=== PATIENT | female | born 1995 | race Caucasian/White ===

== ENCOUNTER → 2016-04-14 | Outpatient (RCR) | payer OTHER, MEDICAID | END | disposition home or self-care (01) | LOC: M OUTALCOH 03-17 10:00 | PROVIDERS: ATTEND Psychiatry & Neurology Psychiatry | DX: F10.10 Alcohol abuse, uncomplicated (principal); F11.20 Opioid dependence, uncomplicated; F12.10 Cannabis abuse, uncomplicated; Z72.0 Tobacco use ==

== ENCOUNTER 2016-05-06 16:00 | Outpatient (RCR) | payer OTHER, MEDICAID | END 2016-05-12 | LOC: M OUTALCOH 16:00 | PROVIDERS: ATTEND Psychiatry & Neurology Psychiatry | DX: F10.10 Alcohol abuse, uncomplicated (principal); F11.20 Opioid dependence, uncomplicated; F12.10 Cannabis abuse, uncomplicated; Z72.0 Tobacco use ==

== ENCOUNTER 2016-06-11 14:00 | Outpatient (RCR) | payer OTHER, MEDICAID | END 2016-06-12 | LOC: M OUTALCOH 14:00 | PROVIDERS: ATTEND Psychiatry & Neurology Psychiatry | DX: F11.20 Opioid dependence, uncomplicated (principal); F12.10 Cannabis abuse, uncomplicated; Z72.0 Tobacco use; F10.10 Alcohol abuse, uncomplicated ==

== ENCOUNTER 2016-07-08 10:00 | Outpatient (RCR) | payer OTHER, MEDICAID | END 2016-07-12 | LOC: M OUTALCOH 10:00 | PROVIDERS: ATTEND Psychiatry & Neurology Psychiatry | DX: F11.20 Opioid dependence, uncomplicated (principal); F12.10 Cannabis abuse, uncomplicated; Z72.0 Tobacco use; F10.10 Alcohol abuse, uncomplicated ==

== ENCOUNTER 2016-08-11 10:30 | Outpatient (RCR) | payer OTHER, MEDICAID | END 2016-08-12 | LOC: M OUTALCOH 10:30 | PROVIDERS: ATTEND Psychiatry & Neurology Psychiatry | DX: F11.20 Opioid dependence, uncomplicated (principal); F12.10 Cannabis abuse, uncomplicated; Z72.0 Tobacco use; F10.10 Alcohol abuse, uncomplicated ==

== ENCOUNTER 2016-09-07 15:00 | Outpatient (RCR) | payer OTHER, MEDICAID | END 2016-09-11 | LOC: M OUTALCOH 15:00 | PROVIDERS: ATTEND Psychiatry & Neurology Psychiatry | DX: F11.20 Opioid dependence, uncomplicated (principal); F12.10 Cannabis abuse, uncomplicated; F10.10 Alcohol abuse, uncomplicated; Z72.0 Tobacco use ==

== ENCOUNTER 2016-10-07 13:00 | Outpatient (RCR) | payer OTHER, MEDICAID | END 2016-10-12 | LOC: M OUTALCOH 13:00 | PROVIDERS: ATTEND Psychiatry & Neurology Psychiatry | DX: F11.20 Opioid dependence, uncomplicated (principal); F12.10 Cannabis abuse, uncomplicated; Z72.0 Tobacco use; F10.10 Alcohol abuse, uncomplicated ==

== ENCOUNTER 2016-11-06 13:00 | Outpatient (RCR) | payer OTHER, MEDICAID | END 2016-11-12 | LOC: M OUTALCOH 13:00 | PROVIDERS: ATTEND Psychiatry & Neurology Psychiatry | DX: F11.20 Opioid dependence, uncomplicated (principal); F12.10 Cannabis abuse, uncomplicated; Z72.0 Tobacco use; F10.10 Alcohol abuse, uncomplicated ==

== ENCOUNTER 2016-12-07 16:00 | Outpatient (RCR) | payer OTHER, MEDICAID | END 2016-12-12 | LOC: M OUTALCOH 16:00 | PROVIDERS: ATTEND Psychiatry & Neurology Psychiatry | DX: F11.20 Opioid dependence, uncomplicated (principal); F12.10 Cannabis abuse, uncomplicated; Z72.0 Tobacco use; F10.10 Alcohol abuse, uncomplicated ==

== ENCOUNTER 2017-01-15 11:33 | Outpatient (RCR) | payer OTHER, MEDICAID | END 2017-02-11 | LOC: M OUTALCOH 11:33 | PROVIDERS: ATTEND Psychiatry & Neurology Psychiatry | DX: F11.20 Opioid dependence, uncomplicated (principal); F12.10 Cannabis abuse, uncomplicated; Z72.0 Tobacco use; F10.10 Alcohol abuse, uncomplicated ==

== ENCOUNTER 2017-04-17 16:02 | Emergency (ER) | payer OTHER, MEDICAID | END 2017-04-17 17:58 | disposition home or self-care (01) | LOC: M ED 16:02 | DX: S00.85XA Superficial foreign body of other part of head, initial encounter (principal); Y92.9 Unspecified place or not applicable; Y93.9 Activity, unspecified; F17.200 Nicotine dependence, unspecified, uncomplicated; Z79.899 Other long term (current) drug therapy | CPT/HCPCS: 99283 ==

== ENCOUNTER → 2017-04-17 | Outpatient (CLI) | payer OTHER, MEDICAID | LOC: M WUC 14:17 | DX: S10.85XA Superficial foreign body of other specified part of neck, initial encounter (principal); X58.XXXA Exposure to other specified factors, initial encounter; Y92.89 Other specified places as the place of occurrence of the external cause | CPT/HCPCS: 70360 ==

== ENCOUNTER 2017-06-03 10:36 | Day surgery (SDC) | payer OTHER, MEDICAID ==
[2017-06-03] MEDS ORDERED: LR 1,000 ML IV (11:00)
[2017-06-03] MEDS ORDERED: LIDOCAINE 1% MDV 20ML VIAL SQ (11:00)
[2017-06-03 11:18] LABS: CONTROL LINE UCG INT CTR LINE PRESENT; URINE PREG TEST NEGATIVE (NEGATIVE)
[2017-06-03] MEDS ORDERED: EMLA CREAM 5GM (LIDOCAINE/PRILOCAINE) As Ordered (12:02)
[2017-06-03] MEDS ORDERED: PROPOFOL 200 MG/20 ML VIAL As Ordered (12:48)
[2017-06-03] MEDS ORDERED: LIDOCAINE 2% INJ 100 MG/5 ML SDV (FOR ANES.) As Ordered (12:48)
[2017-06-03] MEDS ORDERED: ROCURONIUM BROMIDE 50 MG/5 ML VIAL As Ordered (12:49)
[2017-06-03] MEDS ORDERED: MIDAZOLAM INJ 2 MG/2 ML VIAL (J2250) As Ordered (12:50)
[2017-06-03] MEDS ORDERED: fentaNYL 100 MCG/2 ML INJECTION (J3010) As Ordered (12:51)
[2017-06-03] MEDS: BUPIVACAINE HCL 0.25% 30 ML VIAL As Ordered (14:20)
[2017-06-03] MEDS ORDERED: MIDAZOLAM 10MG/5ML SYRUP As Ordered (14:40)
[2017-06-03] MEDS: MIDAZOLAM 10MG/5ML SYRUP PO (14:50)
[2017-06-03] MEDS: LIDOCAINE W/EPINEPHRINE 1% 20ML VIAL As Ordered (16:11)
[2017-06-03] MEDS: LIDOCAINE 1% SDV INJ 30 ML VIAL As Ordered (16:45)
[2017-06-03] MEDS ORDERED: ACETAMINOPHEN TAB 650MG DOSE (2X325MG) PO (18:00)
== END 2017-06-03 18:20 | disposition home or self-care (01) ==
LOC: M SDC 10:36
DX: S10.95XA Superficial foreign body of unspecified part of neck, initial encounter (principal); W45.8XXA Other foreign body or object entering through skin, initial encounter; Y92.89 Other specified places as the place of occurrence of the external cause; F32.9 Major depressive disorder, single episode, unspecified; F41.9 Anxiety disorder, unspecified; Z77.098 Contact with and (suspected) exposure to other hazardous, chiefly nonmedicinal, chemicals; Z87.891 Personal history of nicotine dependence; Z79.899 Other long term (current) drug therapy
CPT/HCPCS: 20525

== ENCOUNTER → 2017-08-03 | Outpatient (CLI) | payer OTHER, MEDICAID | LOC: M SLEEP 08:29 | DX: R55 Syncope and collapse (principal) ==

== ENCOUNTER → 2017-08-05 | Outpatient (CLI) | payer OTHER, MEDICAID | LOC: M RAD 14:06 | DX: R55 Syncope and collapse (principal) ==

== ENCOUNTER → 2018-06-17 | Outpatient (REF) | payer OTHER ==
[~2018-06-17] MED LIST: CLEO150C PO; GABA-843 PO; HYDRO50TAB PO; JULE1TAB; MOVA1TAB2 PO; QUET1TAB10 PO; SERT-138 PO; SUBO8MIS PO; ZOLO50TA PO
[2018-06-20 13:27] LABS: CHLAMYDIA DNA AMPLIFICATION NEGATIVE (NEGATIVE); GC DNA AMPLIFICATION NEGATIVE (NEGATIVE)
== END ==
LOC: M SFHCPLAZ 10:20
PROVIDERS: ATTEND Obstetrics & Gynecology
DX: Z11.9 Encounter for screening for infectious and parasitic diseases, unspecified (principal)
CPT/HCPCS: 87491; 87591; G0123

== ENCOUNTER → 2018-09-23 | Outpatient (REF) | payer OTHER, MEDICAID ==
[2018-09-23 11:43] LABS: HEMATOCRIT 31.7 % (36.0-47.0); HEMOGLOBIN 10.1 g/dl (12.0-15.5); MEAN CORPUSCULAR HEMOGLOBIN 26.2 pg (27.0-33.0); MEAN CORPUSCULAR HGB CONC 31.9 g/dl (32.0-36.5); MEAN CORPUSCULAR VOLUME 82.3 fl (80.0-96.0); PLATELET COUNT, AUTOMATED 388 10^3/uL (150-450); RED BLOOD COUNT 3.85 10^6/uL (4.00-5.40); WHITE BLOOD COUNT 7.5 10^3/uL (4.0-10.0)
[2018-09-23 12:14] LABS: HCG, SERUM QUANTITATIVE 32488 MIU/ML
[2018-09-23 12:16] LABS: RUBELLA IgG QUALITATIVE IMMUNE (IMMUNE)
== END ==
LOC: M SFHCPLAZ 08:56
PROVIDERS: ATTEND Family Medicine
DX: Z36.89 Encounter for other specified antenatal screening (principal); Z3A.08 8 weeks gestation of pregnancy

== ENCOUNTER → 2018-12-08 | Outpatient (CLI) | payer OTHER ==
[~2018-12-08] MED LIST changes: +HYDR1TAB33 PO; -HYDRO50TAB PO
--- NOTE | 2018-12-09 02:51 | REP ---
Clinical: Anatomical evaluation. Comparison: None . Findings: Examination demonstrates a single live intrauterine in cephalic presentation. motion is identified by technologist. Placenta is noted anterior and grade zero without evidence for placenta previa or abruption. Amniotic fluid volume is normal. Cervix measures 3.1 cm in length and appears closed. No evidence for nuchal cord. Gestational age by current measurements 18 weeks 5 days with FREDERICK 05/06/2019 . FHR equals 139 beats per minute. BPD 4.5 cm 19 weeks 4 days HC 15.9 cm 18 weeks 5 days AC 13.7 cm 19 weeks 1 day FL 2.8 cm 18 weeks 3 days HL 2.5 cm 17 weeks 6 days HC/AC ratio 1.16 Estimated weight 259 grams ( 49th percentile). Anatomical assessment demonstrates normal structures including cranium, choroid plexus, cavum, cerebellum/posterior fossa, facial features, lungs, four-chamber heart/ventricular outflow tracts, diaphragm, stomach, cord insertion/three-vessel cord, kidneys*/bladder, spine, and extremities. * bilateral renal pelviectasis remains within normal range. Impression: 1. Single live intrauterine in cephalic presentation demonstrating appropriate estimated weight. 2. Anatomical assessment is complete and essentially normal. No gross abnormalities are identified. Electronically Signed by Bruce Back MD 12/09/2018 02:43 A
== END ==
LOC: M RAD 17:31
PROVIDERS: ATTEND Advanced Practice Midwife
DX: Z34.82 Encounter for supervision of other normal pregnancy, second trimester (principal); Z36.89 Encounter for other specified antenatal screening; Z3A.18 18 weeks gestation of pregnancy

== ENCOUNTER → 2018-12-20 | Outpatient (CLI) | payer OTHER ==
[2018-12-20 16:08] LABS: BASO % 0.2 % (0.0-1.0); EOS # 0.1 10^3/uL (0.0-0.5); EOS % 0.5 % (0.0-3.0); HEMOGLOBIN 10.5 g/dl (12.0-15.5); LYMPH # 2.1 10^3/uL (1.5-5.0); LYMPH % 20.6 % (24.0-44.0); MEAN CORPUSCULAR HEMOGLOBIN 27.1 pg (27.0-33.0); MEAN CORPUSCULAR HGB CONC 31.8 g/dl (32.0-36.5); MEAN CORPUSCULAR VOLUME 85.3 fl (80.0-96.0); MONO # 0.4 10^3/uL (0.0-0.8); MONO % 4.1 % (0.0-5.0); NEUTROPHILS # 7.7 10^3/uL (1.5-8.5); NEUTROPHILS % 74.1 % (36.0-66.0); PLATELET COUNT, AUTOMATED 405 10^3/uL (150-450); RED BLOOD COUNT 3.87 10^6/uL (4.00-5.40); WHITE BLOOD COUNT 10.3 10^3/uL (4.0-10.0)
[2018-12-20 17:41] LABS: CHLAMYDIA DNA AMPLIFICATION NEGATIVE (NEGATIVE); GC DNA AMPLIFICATION NEGATIVE (NEGATIVE)
[2018-12-21 09:13] LABS: HEPATITIS C VIRUS ABY INDEX 0.1 INDEX (<0.8); HIV 1&2 SCREEN CENTAUR NEGATIVE (NEGATIVE); RUBELLA IgG QUALITATIVE IMMUNE (IMMUNE)
== END ==
LOC: M LAB 15:18
PROVIDERS: ATTEND Advanced Practice Midwife
DX: Z34.02 Encounter for supervision of normal first pregnancy, second trimester (principal); Z3A.14 14 weeks gestation of pregnancy

== ENCOUNTER 2019-01-15 23:38 | Outpatient (CLI) | payer OTHER ==
[~2019-01-15] VITALS: Ht 160 cm; Wt 56.7 kg
[2019-01-16 00:01] VITALS: BP 123/60
== END 2019-01-16 00:58 | disposition home or self-care (01) ==
LOC: M LDO 23:38
PROVIDERS: ATTEND Specialist
DX: O36.8120 Decreased fetal movements, second trimester, not applicable or unspecified (principal); Z3A.24 24 weeks gestation of pregnancy
CPT/HCPCS: G0378; G0463

== ENCOUNTER → 2019-02-27 | Outpatient (REF) | payer OTHER, MEDICAID | LOC: M PLALAB 15:44 | PROVIDERS: ATTEND Advanced Practice Midwife | DX: Z53.9 Procedure and treatment not carried out, unspecified reason (principal) ==

== ENCOUNTER → 2019-03-20 | Outpatient (CLI) | payer OTHER, MEDICAID ==
[2019-03-20 13:47] LABS: HEMATOCRIT 39.9 % (36.0-47.0); MEAN CORPUSCULAR HEMOGLOBIN 25.4 pg (27.0-33.0); MEAN CORPUSCULAR HGB CONC 30.1 g/dl (32.0-36.5); MEAN CORPUSCULAR VOLUME 84.4 fl (80.0-96.0); PLATELET COUNT, AUTOMATED 442 10^3/uL (150-450); RED BLOOD COUNT 4.73 10^6/uL (4.00-5.40); WHITE BLOOD COUNT 13.4 10^3/uL (4.0-10.0)
== END ==
LOC: M PLALAB 09:50
PROVIDERS: ATTEND Advanced Practice Midwife
DX: Z34.93 Encounter for supervision of normal pregnancy, unspecified, third trimester (principal); Z3A.00 Weeks of gestation of pregnancy not specified
CPT/HCPCS: 36415; 82950; 85027; 86850; 86900; 86901; J2790

== ENCOUNTER → 2019-04-11 | Outpatient (CLI) | payer OTHER, MEDICAID | LOC: M PLALAB 10:37 | PROVIDERS: ATTEND Advanced Practice Midwife | DX: Z34.03 Encounter for supervision of normal first pregnancy, third trimester (principal) ==

== ENCOUNTER → 2019-04-14 | Outpatient (CLI) | payer OTHER, MEDICAID ==
--- NOTE | 2019-04-14 14:52 | REP ---
OB ULTRASOUND: Real-time sonographic evaluation of the gravid uterus performed. There is a single living intrauterine gestation. The estimated gestational age is 36 weeks 6 days, EDC 05/06/2019. Today's measurements indicate less than expected growth compared to the prior study of 12/08/2018. At that time, estimated weight was at the 49th percentile, currently is at the 16th percentile. BPD 87 mm = 35 weeks 1 day, 24th percentile HC 315 mm = 35 weeks 3 days, 27th percentile AC 311 mm = 35 weeks 0 days, 21st percentile FL 64 mm = 33 weeks 2 days , less than 5th percentile HC/AC ratio 1.02 within normal range of 0.92 to 1.11. Estimated weight 2463 grams, 16th percentile. SEEN/GROSSLY UNREMARKABLE Lateral ventricles No Posterior fossa No Upper lip Yes Four-chamber heart Yes LVOT Yes RVOT Yes Stomach Yes Cord insertion No Three vessel cord Yes Kidneys Yes Bladder Yes Spine Yes heart rate 139 beats per minute. Placenta is anterior and grade 2 with no previa or abruption. Amniotic fluid within normal limits, DAYA 153 within normal range of 7.5 too 24.5. S/D ratio 2.31 within normal range of 1.64 to 2.64. RI: 0.57 slightly below normal range of 0.59 to 0.75. Electronically Signed by Celso Lott MD 04/14/2019 03:39 P
== END ==
LOC: M RAD 12:08
PROVIDERS: ATTEND Advanced Practice Midwife
DX: O26.849 Uterine size-date discrepancy, unspecified trimester (principal); Z3A.36 36 weeks gestation of pregnancy

== ENCOUNTER 2019-04-27 15:08 | Inpatient (IN) | payer OTHER, MEDICAID ==
[2019-04-27] VITALS (18 sets, daily range): BP systolic 96–169; BP diastolic 51–105
[~2019-04-27] VITALS: Ht 160 cm; Wt 64.1 kg
[2019-04-27] MEDS ORDERED: CALC-265 PO ×2 (16:08)
[2019-04-27] MEDS ORDERED: PRENTAB9 PO (16:08)
[2019-04-27 18:11] LABS: HEMATOCRIT 36.4 % (36.0-47.0); HEMOGLOBIN 11.4 g/dl (12.0-15.5); MEAN CORPUSCULAR HEMOGLOBIN 25.7 pg (27.0-33.0); MEAN CORPUSCULAR HGB CONC 31.3 g/dl (32.0-36.5); PLATELET COUNT, AUTOMATED 184 10^3/uL (150-450); RED BLOOD COUNT 4.44 10^6/uL (4.00-5.40); WHITE BLOOD COUNT 19.1 10^3/uL (4.0-10.0)
[2019-04-27] MEDS: LR 1,000 ML IV SCH (18:22)
[2019-04-27] MEDS ORDERED: FENTANYL 2MCG/ML ROPIVACAINE 0.2% IN 0.9% NACL 100ML IVBAG As Ordered ONE (18:42)
[2019-04-27] MEDS ORDERED: EPIDURAL COMMENT XX SCH (19:30)
[2019-04-27] MEDS ORDERED: LACTATED RINGER'S 1000 ML IV PRN (19:30)
[2019-04-27] MEDS: FENTANYL/ROPIVACAINE/NACL BAG 100 ML EPIDURAL SCH (19:30)
[2019-04-27] MEDS ORDERED: diphenhydrAMINE INJ 50MG/ML VIAL (J1200) IV PRN (19:30)
[2019-04-27] MEDS ORDERED: ONDANSETRON 4MG/2ML VIAL (J2405) IV PRN (19:30)
[2019-04-27] MEDS ORDERED: ePHEDrine SULFATE 25 MG/5 ML(5MG/ML) SYRINGE IV PRN (19:30)
[2019-04-27] MEDS ORDERED: EPIDURAL/PCA KEYS XX PRN (19:30)
[2019-04-27] MEDS ORDERED: REFRIGERATOR IV KEYS XX PRN (19:30)
[2019-04-27] MEDS ORDERED: NALOXONE INJ 0.4 MG/1 ML VIAL (J2310) IV PRN (19:30)
[2019-04-27] MEDS ORDERED: OXYTOCIN DRIP 30 UNITS in IV 1 EA IV SCH (20:00)
[2019-04-28] VITALS (33 sets, daily range): BP systolic 89–131; BP diastolic 49–77
[2019-04-28] MEDS: LR 1,000 ML IV SCH (02:22)
[2019-04-28] MEDS ORDERED: FENTANYL 2MCG/ML ROPIVACAINE 0.2% IN 0.9% NACL 100ML IVBAG As Ordered ONE (03:25)
[2019-04-28] MEDS: FENTANYL/ROPIVACAINE/NACL BAG 100 ML EPIDURAL SCH (03:42)
[2019-04-28 07:47] LABS: CORD GAS ABE V -9.3; CORD GAS HCO3 V 18.2 MEQ/L; CORD GAS PCO2 V 45.7 mmHg; CORD GAS PH V 7.219 UNITS; CORD GAS PO2 V 39.6 mmHg; CORD GAS SBC V 16.8 MEQ/L; CORD GAS TCO2 V 19.6 MEQ/L
[2019-04-28 07:49] LABS: CORD GAS ABE A -13.6; CORD GAS HCO3 A 18.1 MEQ/L; CORD GAS O2 SAT A 42.1 %; CORD GAS PCO2 A 70.2 mmHg; CORD GAS PH A 7.029 UNITS; CORD GAS PO2 A 25.3 mmHg; CORD GAS SBC A 13.1 MEQ/L; CORD GAS TCO2 A 20.2 MEQ/L
[2019-04-28] MEDS ORDERED: METHYLERGONOVINE MALEATE 0.2 MG TAB PO PRN (08:30)
[2019-04-28] MEDS ORDERED: MOM 30ML SUSPENSION UDC PO PRN (08:30)
[2019-04-28] MEDS ORDERED: RHOGAM 300 MCG (1500 IU) INJ (J2790) IM SCH (08:30)
[2019-04-28] MEDS ORDERED: ACETAMINOPHEN 500 MG TAB PO PRN (08:30)
[2019-04-28] MEDS ORDERED: ACETAMINOPHEN TAB 650MG DOSE (2X325MG) PO PRN (08:30)
[2019-04-28] MEDS ORDERED: IBUPROFEN 600 MG TAB PO PRN (08:30)
[2019-04-28] MEDS ORDERED: MEASLES,MUMPS,RUBELLA VACCINE INJ (MMR-II) (90707) SC SCH (08:30)
[2019-04-28] MEDS ORDERED: DIBUCAINE 1% OINTMENT 30GM TOP PRN (08:30)
[2019-04-28] MEDS ORDERED: DOCUSATE SODIUM 100 MG CAP PO PRN (08:30)
[2019-04-28] MEDS ORDERED: ANUSOL HC CREAM 30GM TOP PRN (08:30)
--- NOTE | 2019-04-28 08:37 | DNPDOC ---
[facility] Delivery Note Delivery Note DATE OF DELIVERY: 04/28/2019 PREDELIVERY DIAGNOSIS: 38+6/7 weeks' gestation and labor. POST DELIVERY DIAGNOSIS: Delivered. PROCEDURE: Spontaneous vaginal delivery. PROVIDER: Charissa Keyes CNM, Dr Champagne present in [facility] ANESTHESIA: Epidural. ESTIMATED BLOOD LOSS: 200 mL. FINDINGS: Male infant, apgars and weight pending, no nuchal cord DELIVERY SUMMARY: Patient is a 23-year-old 1 now para 1-0-0-1 who was admitted to labor and delivery for labor. Known IUGR this . Onset of labor [address] Champagne for thick meconium stained fluid. She received pitocin augmentation and utilized an epidural for labor coping. FD 0545. I assumed care of patient during 2nd stage @ 0715. Dr Champagne aware of heart rate tracing. NICU requested to attend delivery. Viable male delivered VALENTINE 0731. Cord immediately clamped x 2, cut and infant to warmer. Deep suctioning by nursing staff for large amount of thick meconium fluid followed by 5 minutes of PPV and supportive care. Infant transported to NICU for evaluation by Dr Wilson. Placenta kelley, intact with 3v cord @ 0743. Fundus firmed with massage and IV pitocin bolus. EBL 200ml. Cord gases arterial 7.029 with BE -13.6 and venous 7.219 with BE -9.3. Perineum intact. 1st degree vaginal laceration repaired with 3-0 vicryl rapide. Left labial abrasion repaired with same suture. Sponge, sharp and instrument count correct. Charissa Keyes CNM Apr 28, 2019 08:34
[2019-04-28] MEDS: PRENATAL VITAMINS CHEWABLE TABLET PO SCH (09:00)
[2019-04-28] MEDS: IBUPROFEN 800 MG TAB PO PRN (09:55)
--- NOTE | 2019-04-28 10:41 | HPE ---
DATE OF ADMISSION: 04/27/2019 HISTORY: 23-year-old, (G) 1, para (P) 0 female, at 38-5/7 weeks gestation by ultrasound presents with regular contractions every 3 minutes that having been going on for the last several hours. The contractions increased in intensity. She has no vaginal bleeding. COURSE: The patient initiated care with [facility]. She had no complications. MEDICAL HISTORY: 1. History of anxiety and depression. 2. History of drug and alcohol abuse. SURGICAL HISTORY: 1. 2012 laparoscopic removal of ovarian cyst by Dr. Sena. 2. Neck surgery with broken needles in her neck. ALLERGIES: NO KNOWN DRUG ALLERGIES. SOCIAL HISTORY: The patient has history of drug and alcohol use, has been on Suboxone. FAMILY HISTORY: Noncontributory. PHYSICAL EXAM: Blood pressure 127/83. Pulse 83. Afebrile. She appears uncomfortable. Head and neck exam normal. Lungs clear. Heart regular rate and rhythm. Abdomen nontender, gravid. heart tones category 1. Contractions every 3 minutes. Sterile vaginal exam 3 cm, 100% and -2, posterior, soft vertex. Extremities nontender. LABS: Group B strep is negative. Diabetes screen is 81. Blood type is O positive. ASSESSMENT: 23-year-old, 1, at 38-5/7 weeks gestation presents in early labor. PLAN: The patient is admitted on 04/27/2019.
[2019-04-28] MEDS: BUPRENORPHINE/NALOXONE 2-0.5MG SUBLINGUAL TABLET(SUBOXONE) SL SCH ×2 (12:42→21:50)
[2019-04-29 06:12] VITALS: BP 126/81
[2019-04-29] MEDS: IBUPROFEN 800 MG TAB PO PRN ×2 (07:39→21:52)
--- NOTE | 2019-04-29 08:07 | IPNPDOC ---
Text Note Date of Service The patient was seen on 04/29/19. NOTE PP #1 Feels well. Adequate pain management. Pumping. Voiding VSS, afebrile, normotensive Breasts soft Fundus firm, NT, down 1 FB Lochia rubra light without odor Perineum intact PP #1 Routine care. Anticipate D/C in am VS,Fishbone, I+O VS, Fishbone, I+O Vital Signs Date Time Temp Pulse Resp B/P (MAP) Pulse Ox O2 Delivery O2 Flow Rate FiO2 04/29/19 06:12 98.7 71 18 126/81 (96) 100 Room Air I&O- Last 24 Hours up to 6 AM 04/29/19 06:00 Intake Total 4098 ml Output Total 2610 ml Balance 1488 ml Charissa Keyes CNM Apr 29, 2019 08:07
[2019-04-29] MEDS: PRENATAL VITAMINS CHEWABLE TABLET PO SCH (09:32)
[2019-04-29] MEDS: BUPRENORPHINE/NALOXONE 2-0.5MG SUBLINGUAL TABLET(SUBOXONE) SL SCH ×2 (09:32→21:48)
[2019-04-29 18:00] VITALS: BP 137/75
[2019-04-30 06:00] VITALS: BP 120/79
[2019-04-30] MEDS: PRENATAL VITAMINS CHEWABLE TABLET PO SCH (08:35)
[2019-04-30] MEDS: BUPRENORPHINE/NALOXONE 2-0.5MG SUBLINGUAL TABLET(SUBOXONE) SL SCH (08:35)
== END 2019-04-30 13:47 | disposition home or self-care (01) | DRG 807 ==
LOC: M LDI 15:08 → M OBS 04-28 15:00
PROVIDERS: ADMIT Specialist; ATTEND Specialist
PROC: 10E0XZZ Delivery of Products of Conception, External Approach (ICD-10-PCS; principal; 2019-04-28)
PROC: 0HQ9XZZ Repair Perineum Skin, External Approach (ICD-10-PCS; 2019-04-28)
PROC: 10907ZC Drainage of Amniotic Fluid, Therapeutic from Products of Conception, Via Natural or Artificial Opening (ICD-10-PCS; 2019-04-28)
DX: O77.0 Labor and delivery complicated by meconium in amniotic fluid (principal); Z37.0 Single live birth; Z3A.38 38 weeks gestation of pregnancy; O36.5130 Maternal care for known or suspected placental insufficiency, third trimester, not applicable or unspecified; O70.0 First degree perineal laceration during delivery; O76 Abnormality in fetal heart rate and rhythm complicating labor and delivery

== ENCOUNTER → 2019-05-18 | Outpatient (REF) | payer OTHER, MEDICAID ==
[~2019-05-18] MED LIST changes: +CALC-265 PO; +PRENTAB9 PO
== END ==
LOC: M SFHCWAGY 09:49
PROVIDERS: ATTEND Advanced Practice Midwife
DX: R35.0 Frequency of micturition (principal)

== ENCOUNTER 2021-02-20 10:54 | Emergency (ER) | payer MEDICAID, OTHER ==
[~2021-02-20] VITALS: Ht 160 cm; Wt 53.9 kg
[~2021-02-20 10:54] MED LIST changes: +GABA-282 PO; -GABA-843 PO; -MOVA1TAB2 PO; +NALO25TA PO; -QUET1TAB10 PO; +QUET300T2 PO
[2021-02-20] MEDS ORDERED: NITR100C2 (11:27)
[2021-02-20] MEDS ORDERED: QUET50TA4 (11:27)
[2021-02-20] MEDS ORDERED: CLON-412 (11:27)
[2021-02-20] MEDS ORDERED: ACETAMINOPHEN TAB 650MG DOSE (2X325MG) PO ONE (13:40)
[2021-02-20] MEDS ORDERED: NS 1,000 ML IV ONE (13:40)
[2021-02-20] MEDS ORDERED: ONDANSETRON 4MG/2ML VIAL IV ONE (13:40)
[2021-02-20 14:47] LABS: RSV AMPLIFICATION NEGATIVE (NEGATIVE)
[2021-02-20 16:14] LABS: BASO % 0.2 % (0.0-1.0); EOS % 0.4 % (0.0-3.0); HEMATOCRIT 34.2 % (36.0-47.0); HEMOGLOBIN 10.9 g/dl (12.0-15.5); LYMPH # 1.5 10^3/uL (1.5-5.0); LYMPH % 17.9 % (24.0-44.0); MEAN CORPUSCULAR HEMOGLOBIN 28.7 pg (27.0-33.0); MEAN CORPUSCULAR HGB CONC 31.9 g/dl (32.0-36.5); MONO # 0.7 10^3/uL (0.0-0.8); MONO % 9.1 % (2.0-8.0); NEUTROPHILS # 5.9 10^3/uL (1.5-8.5); NEUTROPHILS % 71.7 % (36.0-66.0); PLATELET COUNT, AUTOMATED 268 10^3/uL (150-450); WHITE BLOOD COUNT 8.2 10^3/uL (4.0-10.0)
[2021-02-20 16:30] LABS: ALT/SGPT 18 U/L (12-78); BILIRUBIN,DIRECT 0.1 MG/DL (0.0-0.2); BILIRUBIN,TOTAL 0.3 MG/DL (0.2-1.0); BLOOD UREA NITROGEN 8 MG/DL (7-18); CALCIUM LEVEL 8.1 MG/DL (8.5-10.1); CARBON DIOXIDE LEVEL 23 MEQ/L (21-32); CHLORIDE LEVEL 109 MEQ/L (98-107); CREATININE FOR GFR 0.64 MG/DL (0.55-1.30); GLOMERULAR FILTRATION RATE > 60.0 (>60); GLUCOSE, FASTING 86 MG/DL (70-100); LIPASE 28 U/L (73-393); POTASSIUM SERUM 3.6 MEQ/L (3.5-5.1); SODIUM LEVEL 139 MEQ/L (136-145); TOTAL PROTEIN 6.5 GM/DL (6.4-8.2)
[2021-02-20 16:32] LABS: HCG, SERUM QUALITATIVE NEGATIVE (NEGATIVE)
[2021-02-20] MEDS ORDERED: cefTRIAXone SOD 1 GM in D5W MINI-BAG PLUS 50 ML IV ONE (17:45)
[2021-02-20] MEDS ORDERED: KETOROLAC 30 MG/ML 1ML VIAL IV ONE (17:45)
[2021-02-20 18:44] VITALS: BP 110/60
== END 2021-02-20 18:59 | disposition home or self-care (01) ==
LOC: M ED 10:54
DX: N15.9 Renal tubulo-interstitial disease, unspecified (principal); F41.9 Anxiety disorder, unspecified; F11.10 Opioid abuse, uncomplicated; Z87.42 Personal history of other diseases of the female genital tract
CPT/HCPCS: 36415; 80048; 80076; 81001; 83605; 83690; 84703; 85025; 87040; 87086; 87631; 96361; 96365; 96375; 99284; J0696; J1885; J2405

== ENCOUNTER → 2022-06-11 | Outpatient (REF) | payer MEDICAID ==
[~2022-06-11] MED LIST changes: +CLON-412; +NITR100C2; +QUET50TA4
[2022-06-11 17:38] LABS: BASO % 0.5 % (0.0-1.0); EOS # 0.1 10^3/uL (0.0-0.5); EOS % 1.6 % (0.0-3.0); HEMOGLOBIN 12.6 g/dl (12.0-15.5); LYMPH # 1.6 10^3/uL (1.5-5.0); LYMPH % 42.1 % (24.0-44.0); MEAN CORPUSCULAR HEMOGLOBIN 29.2 pg (27.0-33.0); MEAN CORPUSCULAR HGB CONC 32.3 g/dl (32.0-36.5); MEAN CORPUSCULAR VOLUME 90.3 fl (80.0-96.0); MONO # 0.2 10^3/uL (0.0-0.8); MONO % 5.2 % (2.0-8.0); NEUTROPHILS # 1.9 10^3/uL (1.5-8.5); NEUTROPHILS % 50.3 % (36.0-66.0); PLATELET COUNT, AUTOMATED 289 10^3/uL (150-450); RED BLOOD COUNT 4.32 10^6/uL (4.00-5.40); WHITE BLOOD COUNT 3.8 10^3/uL (4.0-10.0)
[2022-06-11 17:46] LABS: HEMOGLOBIN A1c 5.1 % (4.0-6.0)
[2022-06-11 18:14] LABS: ALBUMIN 4.2 G/DL (3.2-5.2); ALKALINE PHOSPHATASE 55 U/L (46-116); ALT/SGPT 12 U/L (7.0-40); AST/SGOT 23 U/L (<34); BILIRUBIN,TOTAL 0.8 MG/DL (0.3-1.2); BLOOD UREA NITROGEN 13 MG/DL (9-23); CALCIUM LEVEL 8.9 MG/DL (8.5-10.1); CARBON DIOXIDE LEVEL 27 MMOL/L (20-31); CHLORIDE LEVEL 103 MMOL/L (98-107); CHOLESTEROL LEVEL 166 MG/DL (<200); CHOLESTEROL RISK RATIO 1.84 (<5); CREATININE FOR GFR 0.87 MG/DL (0.55-1.30); GLOMERULAR FILTRATION RATE > 60.0 (>60); GLUCOSE, FASTING 91 MG/DL (60-100); HDL CHOLESTEROL 89.9 MG/DL (>40); LDL CHOLESTEROL 59.7 MG/DL (<100); NON-HDL-C 76.1 MG/DL; SODIUM LEVEL 136 MMOL/L (136-145); THYROID STIMULATING HORMONE 6.342 uIU/ML (0.55-4.78); TRIGLYCERIDES LEVEL 82 MG/DL (<150)
== END ==
LOC: M LAB REF 16:34
PROVIDERS: ATTEND Nurse Practitioner Family
DX: E55.9 Vitamin D deficiency, unspecified (principal); R53.83 Other fatigue; Z72.89 Other problems related to lifestyle

== ENCOUNTER → 2022-07-15 | Outpatient (REF) | payer MEDICAID | LOC: M LAB REF 16:51 | PROVIDERS: ATTEND Nurse Practitioner Family | DX: R89.9 Unspecified abnormal finding in specimens from other organs, systems and tissues (principal) ==

== ENCOUNTER → 2022-11-26 | Outpatient (CLI) | payer MEDICAID ==
[2022-11-26 18:12] LABS: TOTAL 25(OH) VITAMIN D 67.4 NG/ML (20.0-100.0)
[2022-11-26 18:13] LABS: THYROID STIMULATING HORMONE 3.354 uIU/ML (0.55-4.78)
[2022-11-26 18:14] LABS: FOLATE 22.34 NG/ML (>5.4)
[2022-11-28 19:10] LABS: URIC ACID 5.3 MG/DL (3.1-7.8)
[2022-11-28 19:13] LABS: COMPLEMENT C3 77.8 MG/DL (82.0-160.0); COMPLEMENT C4 17.6 MG/DL (12-36); RHEUMATOID FACTOR QUANT 8.1 IU/ML (<14)
== END ==
LOC: M WUC 14:03 → M LAB 14:03
PROVIDERS: ATTEND Psychiatry & Neurology Neurology
DX: E03.9 Hypothyroidism, unspecified (principal); M25.50 Pain in unspecified joint; M25.40 Effusion, unspecified joint; R20.0 Anesthesia of skin

== ENCOUNTER → 2022-11-26 | Outpatient (REF) | payer MEDICAID ==
[2022-11-26 18:38] LABS: HIV 1&2 SCREEN NEGATIVE (NEGATIVE)
[2022-11-26 18:45] LABS: HEPATITIS C VIRUS ABY INDEX 0.13 INDEX (<0.8)
[2022-11-27 08:20] LABS: THYROID PEROXIDASE ANTIBODY < 28.0 U/ML (<60.0)
== END ==
LOC: M LAB REF 16:18
PROVIDERS: ATTEND Nurse Practitioner Family
DX: Z11.9 Encounter for screening for infectious and parasitic diseases, unspecified (principal); E03.9 Hypothyroidism, unspecified

== ENCOUNTER → 2022-12-29 | Outpatient (CLI) | payer MEDICAID | LOC: M CARPUL 14:36 | PROVIDERS: ATTEND Nurse Practitioner Family | DX: R01.1 Cardiac murmur, unspecified (principal) ==

== ENCOUNTER → 2023-06-01 | Outpatient (REF) | payer MEDICAID | LOC: M LAB REF 17:28 | PROVIDERS: ATTEND Nurse Practitioner Family | DX: E03.9 Hypothyroidism, unspecified (principal) ==

== ENCOUNTER → 2023-11-19 | Outpatient (REF) | payer MEDICAID, OTHER | LOC: M LAB REF 16:24 | PROVIDERS: ATTEND Nurse Practitioner Family | DX: Z86.2 Personal history of diseases of the blood and blood-forming organs and certain disorders involving the immune mechanism (principal) ==

== ENCOUNTER → 2024-12-27 | Outpatient (REF) | payer OTHER ==
[~2024-12-27] MED LIST changes: +GABA-1172 PO; -GABA-282 PO
== END ==
LOC: M LAB REF 16:21
PROVIDERS: ATTEND Student in an Organized Health Care Education/Training Program
DX: Z01.84 Encounter for antibody response examination (principal)